=== PATIENT | male | born 1950 | race Caucasian/White ===

== ENCOUNTER 2021-10-29 18:20 | Inpatient (IN) ==
[2021-10-29] MEDS ORDERED: NS 1,000 ML IV 1,000 ML IV ONE (18:31)
[2021-10-29] MEDS ORDERED: NS 1,000 ML IV 1,000 ML ONE (18:35)
[2021-10-29 18:39] LABS: BASOPHILS % (AUTO) 0.1 % (0.2-1.0); EOSINOPHILS # (AUTO) 1.6 x10^3/uL (0.0-0.2); EOSINOPHILS % (AUTO) 6.4 % (0.9-2.9); HEMOGLOBIN 13.6 g/dL (13.5-18.0); LYMPHOCYTES # (AUTO) 0.7 X10^3/uL (1.3-2.9); LYMPHOCYTES % (AUTO) 2.9 % (21.0-51.0); MEAN CORPUSCULAR HEMOGLOBIN 34.7 pg (27.0-34.0); MEAN CORPUSCULAR HGB CONC 34.9 g/dL (33.0-35.0); MEAN CORPUSCULAR VOLUME 99.3 fL (80.0-100.0); MEAN PLATELET VOLUME 6.7 fL (7.4-11.0); MONOCYTES # (AUTO) 0.9 x10^3/uL (0.3-0.8); MONOCYTES % (AUTO) 3.8 % (0.0-13.0); NEUTROPHILS % (AUTO) 86.8 % (42.0-75.0); PLATELET COUNT 408 X10^3/uL (150.0-450.0); RED BLOOD COUNT 3.93 X10^6/uL (4.7-6.0); RED CELL DISTRIBUTION WIDTH 12.9 % (11.6-16.5); WHITE BLOOD COUNT 24.2 X10^3/uL (3.6-10.0)
[2021-10-29 18:52] LABS: ALANINE AMINOTRANSFERASE 60 Units/L (12-78); ALBUMIN 2.9 g/dL (3.4-5.0); ALKALINE PHOSPHATASE 82 Units/L (46-116); ASPARTATE AMINO TRANSFERASE 79 Units/L (15-37); BLOOD UREA NITROGEN 26 mg/dL (7-18); CALCIUM 9.3 mg/dL (8.5-10.1); CARBON DIOXIDE 26.6 mmol/L (21-32); COR CA(FOR HYPOALB) 10.2 mg/dL (8.5-10.1); CREATININE 1.19 mg/dL (0.70-1.30); TOTAL PROTEIN 6.9 g/dL (6.4-8.2); eGFR NON BLACK RACES > 60 (>60)
[2021-10-29 18:55] LABS: CHLORIDE 77 mmol/L (98-107); SODIUM 114 mmol/L (136-145)
[2021-10-29 18:56] LABS: PLATELET MORPHOLOGY COMMENT NORMAL (NORMAL)
[2021-10-29] MEDS ORDERED: SODIUM CHL HYPERTONIC ** 3% ** 500 ML IV SCH (19:10)
--- NOTE | 2021-10-29 19:27 | DR.GENAD ---
HPI Time Seen Time Seen by Provider: 10/29/21 18:44 PCP Primary Care Physician: SARAH HPI Comment HPI Comment: A 71 y/o male brought by the daughter for evaluation of weakness, confusion, falls x 2 ( in past 1 week), loss of appetite Complaint/Symptoms Chief Complaint:: PT. WAS BROUGHT INTO THE ER PER FAMILY MEMBER WITH C/O INCREASED WEAKNESS, DEHYDRATION, LOSS OF APPETITE AND AMS. FAMILY MEMBER STATES PT. HAS BEEN SICK FOR A WHILE BUT HAS GOTTEN WORSE. PT. HAS HAD FREQUENT FALLS AT HOME. MULTIPLE SKIN TEARS NOTED. PT. IS EMACIATED. COVID-19 Coronavirus risk:travel/contact w/high risk person: No Has patient experienced Coronavirus symptoms: No Nurses notes reviewed Nurses Notes Review: Yes Source History Provided: Patient and Family Member Mode of Arrival Mode of Arrival: Wheelchair Timing Onset of Chief Complaint: 10/29/21 Came on: Gradually Duration Duration: Weeks PMH PMH Past Medical History: Yes Past Medical History: Arthritis, COPD and Hypertension Past Medical History Comment: SCOLOSIS Past Surgical History: Yes Surgical History: Tonsillectomy and Other Past Surgical History Comment: BACK SURGERY Family History History of Family Medical Conditions: Yes Family Medical History: Diabetes Mellitus, Cancer, [place] and Coronary Artery Disease Social History Does patient currently use any type of tobacco product: Yes Have you used tobacco products in the last 12 months: Yes Type of Tobacco Use: Cigarettes Does any household member use tobacco: Yes Alcohol Use: DAILY Do you use any recreational Drugs:: No Lives With: Alone Lives Where: Home Travel Risk Coronavirus risk:travel/contact w/high risk person: No Has patient experienced Coronavirus symptoms: No Infectious screening In the last 2 months have you had wt loss of >10#?: YES Have you had fever, night sweats or hemotysis?: No Have you traveled outside the country in the last 6 months?: No Isolation: Standard ROS Review of Systems Constitutional: Malaise and Loss of Appetite Eyes: No Symptoms Reported ENTM: No Symptoms Reported Respiratoy: No Symptoms Reported Cardiovascular: No Symptoms Reported Gastrointestinal/Abdominal: Other (anorexia) Genitourinary: No Symptoms Reported Neurological: Weakness and Other (confusion) Musculoskeletal: Other (recent fallls) Integumentary: No Symptoms Reported Hematologic/Lymphatic: No Symptoms Reported Endocrine: No Symptoms Reported Psychiatric: No Symptoms Reported PE Vital Signs Vitals: Temperature 98.0 F Pulse Rate 89 Respiratory Rate 16 Blood Pressure 136/74 O2 Sat by Pulse Oximetry 94 General Limitations: Physical Limitation General Appearance: Alert, In No Apparent Distress and Cachectic Head Head Exam: Normal Inspection, Atraumatic and Normocephalic Eyes Eye exam: Normal Appearance and EOMI ENT ENT Exam: Normal Exam, Normal Oropharynx, Normal External Ear Exam and Mucous Membranes Moist Neck Neck Exam: Normal Inspection, Full ROM and Trachea Midline Chest Chest Inspection: Normal Inspection and Symmetric Chest Wall Rise Respiratory Respiratory Exam: Normal Lung Sounds Bilat Cardiovascular Cardiovascular Exam: Regular Rate, Normal Rhythm, Normal Heart Sounds, +S1 and +S2 Abdominal Exam Abdominal Exam: Normal Inspection, Normal Bowel Sounds and Soft Extremities Extremities Exam: Normal Inspection and Full ROM Back Back Exam: Normal Inspection and Full ROM Neurologic Neurological Exam: Alert and Other (oriented to self and family) Psychiatric Psychiatric Exam: Normal Affect and Normal Mood Skin Skin Exam: Intact and Other (ecchymoses upper exts. ) COURSE Treatment Treatment: Name: Kerry CHAPA#: [id number]: [id number] : 1950Sex: MLocation: ER Order Number(s): [id number](s):CHEST, 1 VIEW Ordering Physician: PHYLLIS RICE Primary Care: GABE SMITH Service Date: 10/29/21 Service Time: 1844 HISTORY PT C/O SOB, DISORIENTED, DEHYDRATED, WEAKNESS AND LOSS OF APPETITE STUDY CHEST, 1 VIEW COMPARISON September 18, 2020 TECHNIQUE Chest radiographic imaging, AP portable projection, 1 image FINDINGS No cardiomegaly. Lungs are hyperinflated. Gas at the lower aspect of the right thorax could represent pneumoperitoneum. No pleural effusion. No pneumothorax. No acute osseous abnormality. IMPRESSION 1. No imaging findings of acute cardiopulmonary disease. 2. Gas at the lower aspect of the right thorax could represent pneumoperitoneum. Recommend bilateral decubitus imaging of the abdomen for further characterization. Electronically signed by: Malcolm Horton (Oct 29, 2021 20:35:40) Report Electronically signed: 10/29/[id number] CC: Phyllis Rice Consultation Consultation Comments: Name: Kerry CHAPA#: [id number]: [id number] : 1950Sex: MLocation: ER Order Number(s): [id number](s):CHEST,LATERAL DECUBITUS Ordering Physician: PHYLLIS RICE Primary Care: JACKIE SMITHEN Service Date: 10/29/21 Service Time: 2044 HISTORY R/O PNEUMO-MEDIASTINUM STUDY CHEST,LATERAL DECUBITUS COMPARISON None available TECHNIQUE Chest radiographic imaging, left lateral decubitus, 1 image FINDINGS No cardiomegaly. No focal airspace disease. No pleural effusion. No pneumothorax. No acute osseous abnormality. Gas is visualized under the right diaphragm. Fluid level at the dependent portion of the gaseous collection. IMPRESSION 1. No imaging findings of acute cardiopulmonary disease. 2. Gas is visualized under the right diaphragm which is concerning for pneumoperitoneum. There is an air-fluid level in the inferior aspect of the collection which could represent a distended bowel loop. Recommend a CT abdomen/pelvis study for further characterization. Electronically signed by: Malcolm Horton (Oct 29, 2021 21:22:50) Report Electronically signed: 10/29/[id number] CC: Phyllis Rice [facility] Labs Reviewed Result Diagrams: 10/29/21 18:25 10/29/21 18:25 Laboratory: WBC 24.2 X10^3/uL (3.6-10.0) H 10/29/21 18:25 RBC 3.93 X10^6/uL (4.7-6.0) L 10/29/21 18:25 Hgb 13.6 g/dL (13.5-18.0) 10/29/21 18:25 Hct 39.0 % (42.0-54.0) L 10/29/21 18:25 MCV 99.3 fL (80.0-100.0) 10/29/21 18:25 MCH 34.7 pg (27.0-34.0) H 10/29/21 18:25 MCHC 34.9 g/dL (33.0-35.0) 10/29/21 18:25 RDW 12.9 % (11.6-16.5) 10/29/21 18:25 Plt Count 408 X10^3/uL (150.0-450.0) 10/29/21 18:25 Plt Count Comment Adequate (ADEQUATE) 10/29/21 18:25 MPV 6.7 fL (7.4-11.0) L 10/29/21 18:25 Neut % (Auto) 86.8 % (42.0-75.0) H 10/29/21 18:25 Lymph % (Auto) 2.9 % (21.0-51.0) L 10/29/21 18:25 [place] % (Auto) 3.8 % (0.0-13.0) 10/29/21 18:25 Eos % (Auto) 6.4 % (0.9-2.9) H 10/29/21 18:25 Baso % (Auto) 0.1 % (0.2-1.0) L 10/29/21 18: Neut # (Auto) 21.0 x10^3/uL (2.2-4.8) H 10/29/21 18:25 Lymph # (Auto) 0.7 X10^3/uL (1.3-2.9) L 10/29/21 18:25 [place] # (Auto) 0.9 x10^3/uL (0.3-0.8) H 10/29/21 18:25 Eos # (Auto) 1.6 x10^3/uL (0.0-0.2) H 10/29/21 18:25 Baso # (Auto) 0.0 X10^3/uL (0.0-0.1) 10/29/21 18:25 Absolute Nucleated RBC 0.0 /100WBC 10/29/21 18: Total Counted 100 10/29/21 18: Neutrophils % (Manual) 89 % (39-76) H 10/29/21 18:25 Lymphocytes % (Manual) 5 % (13-43) L 10/29/21 18:25 Monocytes % (Manual) 4 % (4-9) 10/29/21 18:25 Eosinophils % (Manual) 2 % (0-6) 10/29/21 18: Plt Morphology Comment Normal (NORMAL) 10/29/21 18: RBC Morphology Normal (NORMAL) 10/29/21 18:25 Sample Site Rrad 10/29/21 19:28 ABG pH 7.400 (7.35-7.45) 10/29/21 19:28 ABG pCO2 43.0 mmHg (35.0-45.0) 10/29/21 19:28 ABG pO2 45.0 mmHg (80.0-100.0) L* 10/29/21 19:28 ABG HCO3 26.6 mmol/L (22-26) H 10/29/21 19:28 ABG O2 Saturation 81.0 % (90-100) L* 10/29/21:28 ABG Base Excess 1.5 mmol/L (-2.0-2.0) 10/29/21 19:28 Ben Test Pos 10/29/21 19:28 A-a Gradient 51.0 mmHg 10/29/21 19:28 FiO2 21.0 10/29/21 19:28 Blood Gas Comments Amanda well ms/mtf 10/29/21 19:28 Sodium 114 mmol/L (136-145) L* 10/29/21 18:25 Corrected Sodium TNP 10/29/21 18:25 Potassium 3.9 mmol/L (3.5-5.1) 10/29/21 18:25 Chloride 77 mmol/L (98-107) L* 10/29/21 18:25 Carbon Dioxide 26.6 mmol/L (21-32) 10/29/21 18:25 BUN 26 mg/dL (7-18) H 10/29/21 18:25 Creatinine 1.19 mg/dL (0.70-1.30) 10/29/21 18:25 Est GFR (MDRD) Af Amer > 60 (>60) 10/29/21 18:25 Est GFR (MDRD) Non-Af > 60 (>60) 10/29/21 18:25 Glucose 104 mg/dL (65-99) H 10/29/21 18:25 Lactic Acid 2.5 mmol/L (0.4-2.0) H 10/29/21 19:55 Calcium 9.3 mg/dL (8.5-10.1) 10/29/21 18:25 Corrected Calcium 10.2 mg/dL (8.5-10.1) H 10/29/21 18:25 Total Bilirubin 0.80 mg/dL (0.2-1.0) 10/29/21 18:25 AST 79 Units/L (15-37) H 10/29/21 18:25 ALT 60 Units/L (12-78) 10/29/21 18:25 Alkaline Phosphatase 82 Units/L (46-116) 10/29/21 18:25 Total Protein 6.9 g/dL (6.4-8.2) 10/29/21 18:25 Albumin 2.9 g/dL (3.4-5.0) L 10/29/21 18:25 Globulin 4.0 g/dL (2.5-4.5) 10/29/21 18:25 Albumin/Globulin Ratio 0.7 Ratio (1.1-2.1) L 10/29/21 18:25 Specimen Type Catherized urine 10/29/21: Urine Color Yellow (YELLOW) 10/29/21 Urine Appearance Clear (CLEAR) 10/29/21: Urine pH 6.0 (5.0 - 8.0) 10/29/21: Ur Specific [place] 1.015 (1.000-1.030) 10/29/21 Urine Protein 2+ (NEGATIVE) 10/29/21 Urine Glucose (UA) Negative (NEGATIVE) 10/29/21 Urine Ketones 3+ (NEGATIVE) 10/29/21 Urine Occult Blood 4+ (NEGATIVE) 10/29/21 Urine Nitrite Negative (NEGATIVE) 10/29/21 Urine Bilirubin Negative (NEGATIVE) 10/29/21 Urine Urobilinogen Normal (NORMAL) 10/29/21 Ur Leukocyte Esterase Negative (NEGATIVE) 10/29/21 Urine RBC 0-2 /HPF (0-3) 10/29/21: Urine WBC None seen /HPF (0-5) 10/29/21: Ur Squamous Epith Cells Few /HPF (NEGATIVE) 10/29/21 Amorphous Sediment 2+ /HPF (NEGATIVE) 10/29/21 Urine Bacteria Trace /HPF (NEGATIVE) 10/29/21 Hyaline Casts Moderate /LPF (NEGATIVE) 10/29/21: Urine Mucus Few /HPF (NEGATIVE) 10/29/21 Ur Culture Indicated? No/not indicated 10/29/21 SARS CoV-2 RNA Rapid YVON Negative (NEGATIVE) 10/29/21 20:19 Opioid Opioid Risk Tool Age (Paulie box if 16-45): No History of Preadolescent Sexual Abuse: No Total: 0 Total Score Risk Category: Low Risk Copyright: Je LEWIS predicting aberrant behaviors Diagnosis Discharge Problem: Hyponatremia, Neutrophilic leukocytosis, Acute dehydration, COPD with chronic bronchitis ADDITIONAL NOTES Additional Notes Additional Notes: Name: Kerry CHAPA#: [id number]: [id number] : 1950Sex: MLocation: ER Order Number(s): [id number](s):ABDOMEN/PELVIS W/O CON Ordering Physician: PHYLLIS RICE Primary Care: GABE SMITH Service Date: 10/29/21 Service Time: 2150 HISTORY R/O PNEUMOPRITONEUM STUDY ABDOMEN/PELVIS W/O CON COMPARISON Chest radiographs, October 29, [address] Non-contrasted axial CT images of the abdomen and pelvis were obtained and reformatted into coronal and sagittal planes for further evaluation. Limited by patient motion. Radiation dose: 426.70 mGy-cm total DLP FINDINGS Airspace disease in the left upper lobe. Stomach appears normal. Solid visceral organs of the upper abdomen are unremarkable. Gallbladder appears normal. Unremarkable appearance of the kidneys. Unremarkable appearance of the urinary bladder. Normal appearance of the small and large bowel. Reproductive structures are unremarkable. Appendix is not identified. No pneumoperitoneum. Colonic interposition between the liver and the right diaphragm. No significant fluid collection. No adenopathy. No acute osseous abnormality. Multilevel age-indeterminate vertebral body height loss. IMPRESSION 1. No acute intra-abdominal abnormality detected. No pneumoperitoneum. Gas under the right diaphragm correlates with mildly dilated gas-filled colon; colonic interposition. 2. Airspace disease in the left upper lobe. Finding could represent the sequela of an atypical/viral infectious process. Recommend correlation with COVID-19 testing. Electronically signed by: Malcolm Horton (Oct 29, 2021 22:30:10) Report Electronically signed: 10/29/216 CC: Phyllis Rice
[2021-10-29 19:31] LABS: ABG BASE EXCESS 1.5 mmol/L (-2.0-2.0); ABG HCO3 26.6 mmol/L (22-26)
[2021-10-29 19:32] LABS: ABG ALLEN TEST POS
--- NOTE | 2021-10-29 20:36 | RAD ---
HISTORYPT C/O SOB, DISORIENTED, DEHYDRATED, WEAKNESS AND LOSS OF APPETITESTUDYCHEST, [facility], AP portable projection, 1 imageFINDINGSNo cardiomegaly.Lungs are hyperinflated.Gas at the lower aspect of the right thorax could represent pneumoperitoneum.No pleural effusion.No pneumothorax.No acute osseous abnormality.IMPRESSION1. No imaging findings of acute cardiopulmonary disease.2. Gas at the lower aspect of the right thorax could represent pneumoperitoneum. Recommend bilateral decubitus imaging of the abdomen for further characterization.Electronically signed by: Malcolm Horton (Oct 29, 2021 20:35:40)
--- NOTE | 2021-10-29 21:24 | RAD ---
HISTORYR/O PNEUMO-MEDIASTINUMSTUDYCHEST,LATERAL DECUBITUSCOMPARISONNone availableTECHNIQUEChest radiographic imaging, left lateral decubitus, 1 imageFINDINGSNo cardiomegaly.No focal airspace disease.No pleural effusion.No pneumothorax.No acute osseous abnormality.Gas is visualized under the right diaphragm.Fluid level at the dependent portion of the gaseous collection.IMPRESSION1. No imaging findings of acute cardiopulmonary disease.2. Gas is visualized under the right diaphragm which is concerning for pneumoperitoneum. There is an air-fluid level in the inferior aspect of the collection which could represent a distended bowel loop. Recommend a CT abdomen/pelvis study for further characterization.Electronically signed by: Malcolm Horton (Oct 29, 2021 21:22:50)
--- NOTE | 2021-10-29 22:31 | CT ---
HISTORYR/O PNEUMOPRITONEUMSTUDYABDOMEN/PELVIS W/O CONCOMPARISONChest radiographs, October 29, 2021TECHNIQUENon-contrasted axial CT images of the abdomen and pelvis were obtained and reformatted into coronal and sagittal planes for further evaluation. Limited by patient motion.Radiation dose: 426.70 mGy-cm total DLPFINDINGSAirspace disease in the left upper lobe.Stomach appears normal.Solid visceral organs of the upper abdomen are unremarkable.Gallbladder appears normal.Unremarkable appearance of the kidneys.Unremarkable appearance of the urinary bladder.Normal appearance of the small and large bowel.Reproductive structures are unremarkable.Appendix is not identified.No pneumoperitoneum.Colonic interposition between the liver and the right diaphragm.No significant fluid collection.No adenopathy.No acute osseous abnormality.Multilevel age-indeterminate vertebral body height loss.IMPRESSION1. No acute intra-abdominal abnormality detected. No pneumoperitoneum. Gas under the right diaphragm correlates with mildly dilated gas-filled colon; colonic interposition.2. Airspace disease in the left upper lobe. Finding could represent the sequela of an atypical/viral infectious process. Recommend correlation with COVID-19 testing.Electronically signed by: Malcolm Horton (Oct 29, 2021 22:30:10)
[2021-10-29 22:43] LABS: BILIRUBIN,URINE NEGATIVE (NEGATIVE); BLOOD/HEMOGLOBIN,URINE 4+ (NEGATIVE); GLUCOSE, URINE NEGATIVE (NEGATIVE); KETONES,URINE 3+ (NEGATIVE); LEUKOCYTE ESTERASE ,URINE NEGATIVE (NEGATIVE); NITRITES,URINE NEGATIVE (NEGATIVE); PROTEIN,URINE 2+ (NEGATIVE); UROBILINOGEN,URINE NORMAL (NORMAL)
[2021-10-29 22:54] LABS: APPEARANCE,URINE CLEAR (CLEAR); COLOR,URINE YELLOW (YELLOW)
[2021-10-29 22:56] LABS: BACTERIA,URINE TRACE /HPF (NEGATIVE); HYALINE CASTS, URINE MODERATE /LPF (NEGATIVE); RBC,URINE 0-2 /HPF (0-3); SQUAMOUS EPITHELIAL CELL,UR FEW /HPF (NEGATIVE)
[2021-10-30] MEDS ORDERED: XANAX PO PRN (01:24)
[2021-10-30 05:09] LABS: BASOPHILS % (AUTO) 0.1 % (0.2-1.0); HEMATOCRIT 35.5 % (42.0-54.0); HEMOGLOBIN 12.4 g/dL (13.5-18.0); LYMPHOCYTES # (AUTO) 0.5 X10^3/uL (1.3-2.9); MEAN CORPUSCULAR HEMOGLOBIN 34.9 pg (27.0-34.0); MEAN CORPUSCULAR VOLUME 99.7 fL (80.0-100.0); MEAN PLATELET VOLUME 6.8 fL (7.4-11.0); MONOCYTES # (AUTO) 1.6 x10^3/uL (0.3-0.8); MONOCYTES % (AUTO) 6.6 % (0.0-13.0); NEUTROPHILS # (AUTO) 21.8 x10^3/uL (2.2-4.8); NEUTROPHILS % (AUTO) 91.3 % (42.0-75.0); PLATELET COUNT 373 X10^3/uL (150.0-450.0); RED BLOOD COUNT 3.56 X10^6/uL (4.7-6.0); RED CELL DISTRIBUTION WIDTH 12.8 % (11.6-16.5); WHITE BLOOD COUNT 23.9 X10^3/uL (3.6-10.0)
[2021-10-30 05:26] LABS: ALANINE AMINOTRANSFERASE 54 Units/L (12-78); ALBUMIN 2.3 g/dL (3.4-5.0); ALKALINE PHOSPHATASE 64 Units/L (46-116); ASPARTATE AMINO TRANSFERASE 55 Units/L (15-37); BLOOD UREA NITROGEN 20 mg/dL (7-18); CALCIUM 8.4 mg/dL (8.5-10.1); CARBON DIOXIDE 24.8 mmol/L (21-32); CHLORIDE 91 mmol/L (98-107); COR CA(FOR HYPOALB) 9.8 mg/dL (8.5-10.1); CREATININE 0.53 mg/dL (0.70-1.30); SODIUM 130 mmol/L (136-145); TOTAL PROTEIN 5.7 g/dL (6.4-8.2); eGFR NON BLACK RACES > 60 (>60)
[2021-10-30] MEDS ORDERED: KLOR-CON PO PRN (05:39)
[2021-10-30] MEDS ORDERED: POTASSIUM CHL 60 MEQ/NS 0.45% 500 ML IV PRN (05:39)
[2021-10-30] MEDS ORDERED: POTASSIUM CHLORIDE LIQ 20 MEQ UDC PO PRN (05:39)
[2021-10-30] MEDS ORDERED: POTASSIUM CHL 40 MEQ/NS 0.45% 500 ML IV PRN (05:39)
[2021-10-30] MEDS ORDERED: K-DUR TAB 20 MEQ PO PRN (05:39)
[2021-10-30] MEDS ORDERED: MICRO K EXTEN CAP 10 MEQ PO PRN (05:39)
[2021-10-30] MEDS ORDERED: NovoLIN R (or HumuLIN R) SUBCUT PRN (05:49)
[2021-10-30 05:57] LABS: PLATELET MORPHOLOGY COMMENT NORMAL (NORMAL)
[2021-10-30] MEDS ORDERED: D5W 1,000 ML IV 1,000 ML IV SCH (06:00)
[2021-10-30] MEDS: MAGNESIUM SULFATE 1 GRAM/100 mL PREMIX 1 G/100 ML BAG IV PRN ×3 (07:52→10:24)
[2021-10-30] MEDS: K-RIDER 10 MEQ/NS 100 ML 10 MEQ/100 ML BAG IV PRN ×3 (07:52→10:24)
[2021-10-30] MEDS: PriLOSEC PO SCH (08:19)
[2021-10-30] MEDS: CELEXA PO SCH (08:19)
[2021-10-30] MEDS: LOVENOX INJ 30 MG SYR SC SCH (08:19)
[2021-10-30] MEDS ORDERED: PATIENT'S HOME MEDICATION (Lovastatin 40 mg tablet) PO SCH ×2 (09:00)
[2021-10-30] MEDS: ZOSYN VIAL 3.375 GRAMS 3.375 G in NS 100 ML IV + SPIKE MINIBAG* 100 ML IV SCH ×3 (11:09→21:26)
[2021-10-30 13:44] LABS: BLOOD UREA NITROGEN 12 mg/dL (7-18); CALCIUM 8.1 mg/dL (8.5-10.1); CARBON DIOXIDE 28.8 mmol/L (21-32); CHLORIDE 87 mmol/L (98-107); COR NA(FOR HYPERGLY) 124 mmol/L (136-145); CREATININE 0.42 mg/dL (0.70-1.30); eGFR NON BLACK RACES > 60 (>60)
[2021-10-30 13:48] LABS: SODIUM 124 mmol/L (136-145)
[2021-10-30] MEDS: D5 NS 1,000 ML IV 1,000 ML IV SCH (14:20)
[2021-10-30 18:23] LABS: BLOOD UREA NITROGEN 11 mg/dL (7-18); CALCIUM 8.5 mg/dL (8.5-10.1); CARBON DIOXIDE 30.2 mmol/L (21-32); CHLORIDE 88 mmol/L (98-107); COR NA(FOR HYPERGLY) 127 mmol/L (136-145); CREATININE 0.48 mg/dL (0.70-1.30); SODIUM 126 mmol/L (136-145); eGFR NON BLACK RACES > 60 (>60)
[2021-10-30] MEDS: NORCO 5/325 MG TAB PO PRN (19:25)
[2021-10-30] MEDS: SNACK - Diabetic Appropriate PO SCH (21:23)
[2021-10-31 04:45] LABS: BASOPHILS % (AUTO) 0.1 % (0.2-1.0); HEMATOCRIT 36.3 % (42.0-54.0); HEMOGLOBIN 12.4 g/dL (13.5-18.0); LYMPHOCYTES # (AUTO) 0.6 X10^3/uL (1.3-2.9); MEAN CORPUSCULAR HEMOGLOBIN 34.1 pg (27.0-34.0); MEAN CORPUSCULAR HGB CONC 34.2 g/dL (33.0-35.0); MEAN CORPUSCULAR VOLUME 99.8 fL (80.0-100.0); MEAN PLATELET VOLUME 6.3 fL (7.4-11.0); MONOCYTES # (AUTO) 1.2 x10^3/uL (0.3-0.8); MONOCYTES % (AUTO) 6.3 % (0.0-13.0); NEUTROPHILS # (AUTO) 17.2 x10^3/uL (2.2-4.8); NEUTROPHILS % (AUTO) 90.6 % (42.0-75.0); PLATELET COUNT 340 X10^3/uL (150.0-450.0); RED BLOOD COUNT 3.64 X10^6/uL (4.7-6.0); RED CELL DISTRIBUTION WIDTH 13.1 % (11.6-16.5)
[2021-10-31 04:58] LABS: ALANINE AMINOTRANSFERASE 43 Units/L (12-78); ALKALINE PHOSPHATASE 60 Units/L (46-116); ASPARTATE AMINO TRANSFERASE 28 Units/L (15-37); BLOOD UREA NITROGEN 10 mg/dL (7-18); CALCIUM 8.4 mg/dL (8.5-10.1); CARBON DIOXIDE 29.6 mmol/L (21-32); CHLORIDE 90 mmol/L (98-107); CREATININE 0.35 mg/dL (0.70-1.30); MAGNESIUM 1.6 mg/dL (1.7-2.9); SODIUM 128 mmol/L (136-145); TOTAL PROTEIN 5.6 g/dL (6.4-8.2); eGFR NON BLACK RACES > 60 (>60)
[2021-10-31 05:21] LABS: PLATELET MORPHOLOGY COMMENT NORMAL (NORMAL)
[2021-10-31] MEDS: ZOSYN VIAL 3.375 GRAMS 3.375 G in NS 100 ML IV + SPIKE MINIBAG* 100 ML IV SCH (05:52)
--- NOTE | 2021-10-31 08:01 | DR.H&P ---
H&P History & Physical for Day of: H&P Date: 10/30/21 Chief Complaint Chief Complaint: Weakness, Altered mental status Allergies Allergies Allergy/AdvReac Type Severity Reaction Status Date / Time clindamycin Allergy Verified 09/18/20 15:36 ketorolac [From Toradol] Allergy Verified 09/18/20 15:36 History of Present Illness History of Present Illness: Pt is a 71 year old male past medical history of COPD, Hypertension, OA, presenting after family member noted increased weakness, loss of appetite, and altered mental status. Pt is emaciated. On exam patient is lethargic and appears to be dehydrated. Labs/imaging: Wbc 24>23, Hgb 13.6>12.4, Plt 408, D-dimer 0.60, Na 114>130, K 3.9>3.1, Creatinine 1.19>0.53, Glucose 80, ABG: pH 7.4, CO2 43, O2 45, HCO3 26, O2 sat 81% on RA, LA 2.5>1.2, Flu/RSV/COVID-19 negative. Chest XR: 1. No imaging findings of acute cardiopulmonary disease. 2. Gas at the lower aspect of the right thorax could represent pneumoperitoneum. Recommend bilateral decubitus imaging of the abdomen for further characterization. CTAP was then obtained that revealed: 1. No acute intra-abdominal abnormality detected. No pneumoperitoneum. Gas under the right diaphragm correlates with mildly dilated gas-filled colon; colonic interpositio n. 2. Airspace disease in the left upper lobe. Finding could represent the sequela of an atypical/viral infectious process. Recommend correlation with COVID-19 testing. Pt was found to be severely hyponatremic. He was started on 3% Hypertonic saline. Repeat BMP showed Na 130. Will change to D5 NS to allow for correction of Na between 8 to 10 per 24 hours. Repeat BMP at 12. Leukocytosis with elevated LA. Will get Blood cultures, Sputum, and Urine cultures. Start on antibiotics Zosyn. Scheduled bronchodilators, Supplemental oxygen, wean as tolerated. Restart home medications, order physical therapy. Continue to closely monitor and follow up labs/imaging. Time spent on clinical assessment, reviewing labs and imaging, decision making, and documentation greater than 45 minutes. Past Medical History Past Medical History: Arthritis, COPD and Hypertension Past Surgical History Surgical History: Tonsillectomy and Other Family History Family Medical History: Diabetes Mellitus, Cancer, [place] and Coronary Artery Disease Social History Does patient currently use any type of tobacco product: Yes Have you used tobacco products in the last 12 months: Yes Type of Tobacco Use: Cigarettes Does any household member use tobacco: Yes Alcohol Use: DAILY Medications Home Medications: clindamycin Allergy (Verified 09/18/20 15:36) ketorolac [From Toradol] Allergy (Verified 09/18/20 15:36) CONTINUE taking the following medications alprazolam 1 mg PO TID PRN 10/29/21 [History] amlodipine 10 mg PO DAILY 10/29/21 [History] citalopram 20 mg PO DAILY 10/29/21 [History] clonidine HCl 0.3 mg PO BID 10/29/21 [History] hydrocodone-acetaminophen 1 tab PO Q6H PRN 10/29/21 [History] lisinopril-hydrochlorothiazide 1 tab PO DAILY 10/29/21 [History] lovastatin 40 mg PO DAILY 10/29/21 [History] omeprazole 20 mg PO DAILY 10/29/21 [History] Labs Result Diagrams: 10/31/21 04:30 10/31/21 04:30 Labs: Laboratory WBC 19.0 X10^3/uL (3.6-10.0) H 10/31/21 04:30 RBC 3.64 X10^6/uL (4.7-6.0) L 10/31/21 04:30 Hgb 12.4 g/dL (13.5-18.0) L 10/31/21 04:30 Hct 36.3 % (42.0-54.0) L 10/31/21 04:30 MCV 99.8 fL (80.0-100.0) 10/31/21 04:30 MCH 34.1 pg (27.0-34.0) H 10/31/21 04:30 MCHC 34.2 g/dL (33.0-35.0) 10/31/21 04:30 RDW 13.1 % (11.6-16.5) 10/31/21 04:30 Plt Count 340 X10^3/uL (150.0-450.0) 10/31/21 04:30 Plt Count Comment Adequate (ADEQUATE) 10/31/21 04:30 MPV 6.3 fL (7.4-11.0) L 10/31/21 04:30 Neut % (Auto) 90.6 % (42.0-75.0) H 10/31/21 04:30 Lymph % (Auto) 3.0 % (21.0-51.0) L 10/31/21 04:30 [place] % (Auto) 6.3 % (0.0-13.0) 10/31/21 04:30 Eos % (Auto) 0.0 % (0.9-2.9) L 10/31/21 04:30 Baso % (Auto) 0.1 % (0.2-1.0) L 10/31/21 04:30 Neut # (Auto) 17.2 x10^3/uL (2.2-4.8) H 10/31/21 04:30 Lymph # (Auto) 0.6 X10^3/uL (1.3-2.9) L 10/31/21 04:30 [place] # (Auto) 1.2 x10^3/uL (0.3-0.8) H 10/31/21 04:30 Eos # (Auto) 0.0 x10^3/uL (0.0-0.2) 10/31/21 04:30 Baso # (Auto) 0.0 X10^3/uL (0.0-0.1) 10/31/21 04:30 Absolute Nucleated RBC 0.0 /100WBC 10/31/21 04:30 Total Counted 100 10/31/21 04:30 Neutrophils % (Manual) 89 % (39-76) H 10/31/21 04:30 Lymphocytes % (Manual) 9 % (13-43) L 10/31/21 04:30 Monocytes % (Manual) 2 % (4-9) L 10/31/21 04:30 Eosinophils % (Manual) 2 % (0-6) 10/29/21 18:25 Plt Morphology Comment Normal (NORMAL) 10/31/21 04:30 RBC Morphology Normal (NORMAL) 10/31/21 04:30 D-Dimer 0.60 ug/ml (0.0-0.57) H* 10/29/21 23:05 Sample Site Rrad 10/29/21 19:28 ABG pH 7.400 (7.35-7.45) 10/29/21 19:28 ABG pCO2 43.0 mmHg (35.0-45.0) 10/29/21 19:28 ABG pO2 45.0 mmHg (80.0-100.0) L* 10/29/21 19:28 ABG HCO3 26.6 mmol/L (22-26) H 10/29/21 19:28 ABG O2 Saturation 81.0 % (90-100) L* 10/29/21: ABG Base Excess 1.5 mmol/L (-2.0-2.0) 10/29/21 19:28 Ben Test Pos 10/29/21: A-a Gradient 51.0 mmHg 10/29/21 19: FiO2 21.0 10/29/21 19:28 Blood Gas Comments Amanda well ms/mtf 10/29/21 19:28 Sodium 128 mmol/L (136-145) L 10/31/21 04:30 Corrected Sodium TNP 10/31/21 04:30 Potassium 3.2 mmol/L (3.5-5.1) L 10/31/21 04:30 Chloride 90 mmol/L (98-107) L 10/31/21 04:30 Carbon Dioxide 29.6 mmol/L (21-32) 10/31/21 04:30 BUN 10 mg/dL (7-18) 10/31/21 04:30 Creatinine 0.35 mg/dL (0.70-1.30) L 10/31/21 04:30 Est GFR (MDRD) Af Amer > 60 (>60) 10/31/21 04:30 Est GFR (MDRD) Non-Af > 60 (>60) 10/31/21 04:30 Glucose 103 mg/dL (65-99) H 10/31/21 04:30 POC Glucose (mg/dL) 130 mg/dL (65-99) H 10/30/21 11:53 Lactic Acid 1.2 mmol/L (0.4-2.0) 10/30/21 07:20 Calcium 8.4 mg/dL (8.5-10.1) L 10/31/21 04:30 Corrected Calcium 10.0 mg/dL (8.5-10.1) 10/31/21 04:30 Magnesium 1.6 mg/dL (1.7-2.9) L 10/31/21 04:30 Total Bilirubin 0.50 mg/dL (0.2-1.0) 10/31/21 04:30 AST 28 Units/L (15-37) 10/31/21 04:30 ALT 43 Units/L (12-78) 10/31/21 04:30 Alkaline Phosphatase 60 Units/L (46-116) 10/31/21 04:30 Total Protein 5.6 g/dL (6.4-8.2) L 10/31/21 04:30 Albumin 2.0 g/dL (3.4-5.0) L 10/31/21 04:30 Globulin 3.6 g/dL (2.5-4.5) 10/31/21 04:30 Albumin/Globulin Ratio 0.6 Ratio (1.1-2.1) L 10/31/21 04:30 Specimen Type Catherized urine 10/29/21: Urine Color Yellow (YELLOW) 10/29/21: Urine Appearance Clear (CLEAR) 10/29/21: Urine pH 6.0 (5.0 - 8.0) 10/29/21: Ur Specific [place] 1.015 (1.000-1.030) 10/29/21: Urine Protein 2+ (NEGATIVE) 10/29/21: Urine Glucose (UA) Negative (NEGATIVE) 10/29/21: Urine Ketones 3+ (NEGATIVE) 10/29/21: Urine Occult Blood 4+ (NEGATIVE) 10/29/21 Urine Nitrite Negative (NEGATIVE) 10/29/21: Urine Bilirubin Negative (NEGATIVE) 10/29/21: Urine Urobilinogen Normal (NORMAL) 10/29/21 Ur Leukocyte Esterase Negative (NEGATIVE) 10/29/21 Urine RBC 0-2 /HPF (0-3) 10/29/21 22: Urine WBC None seen /HPF (0-5) 10/29/21: Ur Squamous Epith Cells Few /HPF (NEGATIVE) 10/29/21: Amorphous Sediment 2+ /HPF (NEGATIVE) 10/29/21 Urine Bacteria Trace /HPF (NEGATIVE) 10/29/21 22:27 Hyaline Casts Moderate /LPF (NEGATIVE) 10/29/21 22:27 Urine Mucus Few /HPF (NEGATIVE) 10/29/21 22:27 Ur Culture Indicated? No/not indicated 10/29/21 22:27 SARS-CoV-2 (PCR) Negative (NEGATIVE) 10/29/21 23:26 Influenza Type A (PCR) Negative (NEGATIVE) 10/29/21 23:26 Influenza Type B (PCR) Negative (NEGATIVE) 10/29/21 23:26 RSV (PCR) Negative (NEGATIVE) 10/29/21 23:26 SARS CoV-2 RNA Rapid YVON Negative (NEGATIVE) 10/29/21 20:19 Review of Systems Constitutional: Weakness; denies Fever and Chills Eyes: No Symptoms Reported ENT: No Symptoms Reported Respiratory: Shortness of Breath Cardiovascular: No Symptoms Reported Gastrointestinal: No Symptoms Reported Genitourinary: No Symptoms Reported Musculoskeletal: No Symptoms Reported Skin: No Symptoms Reported Neurological: Weakness and Other (Loss of appetite ) Physical Exam Vital Signs: Temperature 97.9 F Pulse Rate 100 Respiratory Rate 17 Blood Pressure [Left Arm] 110/69 Blood Pressure 120/66 O2 Sat by Pulse Oximetry 100 Oriented: Other (lethargic, will arouse to questions) Eyes: Normal Ear: Normal Nose: Normal Throat: Normal Respiratory: Diminished Throughout Cardiovascular: Normal : Normal Auscultation: Bowel Sounds: Normal Palpation: Normal Tenderness: Normal Skin: Normal Musculoskeletal: Instability Mood Description: Calm Assessment/Plan (1) COPD exacerbation: Status: Acute (2) Hyponatremia: Status: Acute (3) Neutrophilic leukocytosis: Status: Acute (4) Acute dehydration: Status: Acute Review H&P Reviewed: Yes Patient was examined?: Yes
[2021-10-31] MEDS: PriLOSEC PO SCH (08:05)
[2021-10-31] MEDS: CELEXA PO SCH (08:05)
[2021-10-31] MEDS: ATIVAN TAB 0.5 MG PO SCH (08:05)
[2021-10-31] MEDS: LOVENOX INJ 30 MG SYR SC SCH (08:06)
[2021-10-31] MEDS: K-RIDER 10 MEQ/NS 100 ML 10 MEQ/100 ML BAG IV PRN ×4 (08:14→12:43)
[2021-10-31] MEDS: MAGNESIUM SULFATE 1 GRAM/100 mL PREMIX 1 G/100 ML BAG IV PRN ×2 (08:14→09:41)
[2021-10-31] MEDS: NORCO 5/325 MG TAB PO PRN ×2 (08:30→18:27)
[2021-10-31] MEDS: D5 NS 1,000 ML IV 1,000 ML IV SCH ×2 (08:37→16:49)
--- NOTE | 2021-10-31 10:38 | RAD ---
HISTORYSOB, PT EXTREMELY KYPHOTIC-BEST VIEWSSTUDYCHEST x-ray, 1 VIEWCOMPARISONX-ray 10/29/2021FINDINGSLikely moderate pleural effusions have worsened since prior study. Heart size is obscured. Atelectasis or pneumonia is likely present in the lung bases, increased from prior study. Pulmonary edema would be another possible etiology. No pneumothorax is seen.IMPRESSIONLikely moderate pleural effusions have worsened since prior study with increasing atelectasis and/or pneumonia in the lower lungs. However, consider possible CHF and pulmonary edema, also. Heart size is obscured on this study.Electronically signed by: Fabrizio Ernandez (Oct 31, 2021 10:37:07)
[2021-10-31] MEDS: LEVAQUIN PREMIX IV 750 MG 750 MG/150 ML BAG IV SCH (10:40)
--- NOTE | 2021-10-31 10:54 | PCM.PROG ---
Progress Note Progress Note for Day of Date of Exam: 10/31/21 Subjective Subjective: Pt is a 71 year old male past medical history of COPD, Hypertension, OA, admitted for Hyponatremia, COPD exacerbation, neutrophilic leukocytosis. This morning he appears to have improved. His mental status is close to baseline. He is answering questions appropriately. Labs/imaging: Wbc 23>19, Hgb 12.4, Plt 340, Na 128, K 3.2, Creatinine 0.35, Glucose 103, Urine/Blood culture pending, Chest XR: Likely moderate pleural effusions have worsened since prior study with increasing atelectasis and/or pneumonia in the lower lungs. However, consider possible CHF and pulmonary edema, also. Heart size is obscured on this study. Will give IV Lasix 40mg x 1 dose. Will also increase rate on D5 NS to 75ml/h. Allow for correction of Na between 8 to 10 per 24 hours. Change antibiotics from Zosyn to Levaquin. Continue scheduled bronchodilators, supplemental oxygen, wean as tolerated. Continue home medications, order physical therapy. Continue to closely monitor and follow up labs/imaging. Time spent on clinical assessment, reviewing labs and imaging, decision making, and documentation greater than 45 minutes. Past Medical Family Social History Past Med/Fam/Surg Hx: No changes since H&P Allergies: Allergies clindamycin Allergy (Verified 09/18/20 15:36) ketorolac [From Toradol] Allergy (Verified 09/18/20 15:36) Review of Systems ROS: No change since H&P Vital Signs and I&O's Vital Signs: Temperature 97.9 F Pulse Rate 92 Respiratory Rate 18 Blood Pressure [Left Arm] 110/69 Blood Pressure 132/70 O2 Sat by Pulse Oximetry 92 Intake and Output: Intake & Output 10/28/21 10/29/21 10/30/21 10/31/21 23:59 23:59 23:59 23:59 Intake Total 2061 / 2061 283 / 283 Output Total 2124 / 2124 250 / 250 Balance -63 / -63 Physical Exam Oriented: Normal Eyes: Normal Ear: Normal Nose: Normal Throat: Normal Respiratory: Diminished and [place] Cardiovascular: Normal : Normal Auscultation: Bowel Sounds: Normal Tenderness: Normal Skin: Normal Musculoskeletal: Instability Mood Description: Calm Speech Pattern: Slurred Laboratory and Diagnostics Result Diagrams: 10/31/21 04:30 10/31/21 04:30 Labs: 10/30/21 12:00 Urine,Clean Catch Urine Culture - Preliminary Laboratory WBC 19.0 X10^3/uL (3.6-10.0) H 10/31/21 04:30 RBC 3.64 X10^6/uL (4.7-6.0) L 10/31/21 04:30 Hgb 12.4 g/dL (13.5-18.0) L 10/31/21 04:30 Hct 36.3 % (42.0-54.0) L 10/31/21 04:30 MCV 99.8 fL (80.0-100.0) 10/31/21 04:30 MCH 34.1 pg (27.0-34.0) H 10/31/21 04:30 MCHC 34.2 g/dL (33.0-35.0) 10/31/21 04:30 RDW 13.1 % (11.6-16.5) 10/31/21 04:30 Plt Count 340 X10^3/uL (150.0-450.0) 10/31/21 04:30 Plt Count Comment Adequate (ADEQUATE) 10/31/21 04:30 MPV 6.3 fL (7.4-11.0) L 10/31/21 04:30 Neut % (Auto) 90.6 % (42.0-75.0) H 10/31/21 04:30 Lymph % (Auto) 3.0 % (21.0-51.0) L 10/31/21 04:30 [place] % (Auto) 6.3 % (0.0-13.0) 10/31/21 04:30 Eos % (Auto) 0.0 % (0.9-2.9) L 10/31/21 04:30 Baso % (Auto) 0.1 % (0.2-1.0) L 10/31/21 04:30 Neut # (Auto) 17.2 x10^3/uL (2.2-4.8) H 10/31/21 04:30 Lymph # (Auto) 0.6 X10^3/uL (1.3-2.9) L 10/31/21 04:30 [place] # (Auto) 1.2 x10^3/uL (0.3-0.8) H 10/31/21 04:30 Eos # (Auto) 0.0 x10^3/uL (0.0-0.2) 10/31/21 04:30 Baso # (Auto) 0.0 X10^3/uL (0.0-0.1) 10/31/21 04:30 Absolute Nucleated RBC 0.0 /100WBC 10/31/21 04:30 Total Counted 100 10/31/21 04:30 Neutrophils % (Manual) 89 % (39-76) H 10/31/21 04:30 Lymphocytes % (Manual) 9 % (13-43) L 10/31/21 04:30 Monocytes % (Manual) 2 % (4-9) L 10/31/21 04:30 Eosinophils % (Manual) 2 % (0-6) 10/29/21 18:25 Plt Morphology Comment Normal (NORMAL) 10/31/21 04:30 RBC Morphology Normal (NORMAL) 10/31/21 04:30 D-Dimer 0.60 ug/ml (0.0-0.57) H* 10/29/21 23:05 Sample Site Rrad 10/29/21 19:28 ABG pH 7.400 (7.35-7.45) 10/29/21 19:28 ABG pCO2 43.0 mmHg (35.0-45.0) 10/29/21 19:28 ABG pO2 45.0 mmHg (80.0-100.0) L* 10/29/21 19:28 ABG HCO3 26.6 mmol/L (22-26) H 10/29/21 19:28 ABG O2 Saturation 81.0 % (90-100) L* 10/29/21 19:28 ABG Base Excess 1.5 mmol/L (-2.0-2.0) 10/29/21 19:28 Ben Test Pos 10/29/21 19:28 A-a Gradient 51.0 mmHg 10/29/21 19:28 FiO2 21.0 10/29/21 19:28 Blood Gas Comments Amanda well ms/mtf 10/29/21 19:28 Sodium 128 mmol/L (136-145) L 10/31/21 04:30 Corrected Sodium TNP 10/31/21 04:30 Potassium 3.2 mmol/L (3.5-5.1) L 10/31/21 04:30 Chloride 90 mmol/L (98-107) L 10/31/21 04:30 Carbon Dioxide 29.6 mmol/L (21-32) 10/31/21 04:30 BUN 10 mg/dL (7-18) 10/31/21 04:30 Creatinine 0.35 mg/dL (0.70-1.30) L 10/31/21 04:30 Est GFR (MDRD) Af Amer > 60 (>60) 10/31/21 04:30 Est GFR (MDRD) Non-Af > 60 (>60) 10/31/21 04:30 Glucose 103 mg/dL (65-99) H 10/31/21 04:30 POC Glucose (mg/dL) 130 mg/dL (65-99) H 10/30/21 11:53 Lactic Acid 1.2 mmol/L (0.4-2.0) 10/30/21 07:20 Calcium 8.4 mg/dL (8.5-10.1) L 10/31/21 04:30 Corrected Calcium 10.0 mg/dL (8.5-10.1) 10/31/21 04:30 Magnesium 1.6 mg/dL (1.7-2.9) L 10/31/21 04:30 Total Bilirubin 0.50 mg/dL (0.2-1.0) 10/31/21 04:30 AST 28 Units/L (15-37) 10/31/21 04:30 ALT 43 Units/L (12-78) 10/31/21 04:30 Alkaline Phosphatase 60 Units/L (46-116) 10/31/21 04:30 Total Protein 5.6 g/dL (6.4-8.2) L 10/31/21 04:30 Albumin 2.0 g/dL (3.4-5.0) L 10/31/21 04:30 Globulin 3.6 g/dL (2.5-4.5) 10/31/21 04:30 Albumin/Globulin Ratio 0.6 Ratio (1.1-2.1) L 10/31/21 04:30 Specimen Type Catherized urine 10/29/21 22:27 Urine Color Yellow (YELLOW) 10/29/21 22: Urine Appearance Clear (CLEAR) 10/29/21 22: Urine pH 6.0 (5.0 - 8.0) 10/29/21 22: Ur Specific [place] 1.015 (1.000-1.030) 10/29/21 22: Urine Protein 2+ (NEGATIVE) 10/29/21 22: Urine Glucose (UA) Negative (NEGATIVE) 10/29/21 22: Urine Ketones 3+ (NEGATIVE) 10/29/21 22: Urine Occult Blood 4+ (NEGATIVE) 10/29/21 22: Urine Nitrite Negative (NEGATIVE) 10/29/21 22: Urine Bilirubin Negative (NEGATIVE) 10/29/21 22: Urine Urobilinogen Normal (NORMAL) 10/29/21 22: Ur Leukocyte Esterase Negative (NEGATIVE) 10/29/21 22: Urine RBC 0-2 /HPF (0-3) 10/29/21 22: Urine WBC None seen /HPF (0-5) 10/29/21 22: Ur Squamous Epith Cells Few /HPF (NEGATIVE) 10/29/21 22: Amorphous Sediment 2+ /HPF (NEGATIVE) 10/29/21 22: Urine Bacteria Trace /HPF (NEGATIVE) 10/29/21 22: Hyaline Casts Moderate /LPF (NEGATIVE) 10/29/21 22: Urine Mucus Few /HPF (NEGATIVE) 10/29/21 22: Ur Culture Indicated? No/not indicated 10/29/21 22:27 SARS-CoV-2 (PCR) Negative (NEGATIVE) 10/29/21 23:26 Influenza Type A (PCR) Negative (NEGATIVE) 10/29/21 23:26 Influenza Type B (PCR) Negative (NEGATIVE) 10/29/21 23:26 RSV (PCR) Negative (NEGATIVE) 10/29/21 23:26 SARS CoV-2 RNA Rapid YVON Negative (NEGATIVE) 10/29/21 20:19 Plan (1) COPD exacerbation: Status: Acute (2) Hyponatremia: Status: Acute (3) Neutrophilic leukocytosis: Status: Acute (4) Acute dehydration: Status: Acute
[2021-10-31] MEDS ORDERED: LASIX IVP ONE (10:55)
[2021-10-31] MEDS ORDERED: BROVANA ONE (19:07)
[2021-10-31] MEDS ORDERED: PULMICORT NEB TX 0.5 MG NEB ONE (19:07)
[2021-10-31] MEDS: PULMICORT NEB TX 0.5 MG NEB SCH (20:00)
[2021-10-31] MEDS: BROVANA IN SCH (20:00)
[2021-10-31] MEDS: SNACK - Diabetic Appropriate PO SCH (20:00)
[2021-11-01] MEDS: NORCO 5/325 MG TAB PO PRN (03:58)
[2021-11-01] MEDS: D5 NS 1,000 ML IV 1,000 ML IV SCH ×2 (05:00→20:28)
[2021-11-01 06:40] LABS: BASOPHILS % (AUTO) 0.1 % (0.2-1.0); HEMATOCRIT 33.7 % (42.0-54.0); HEMOGLOBIN 11.8 g/dL (13.5-18.0); LYMPHOCYTES # (AUTO) 0.7 X10^3/uL (1.3-2.9); LYMPHOCYTES % (AUTO) 3.4 % (21.0-51.0); MEAN CORPUSCULAR HEMOGLOBIN 35.1 pg (27.0-34.0); MEAN CORPUSCULAR HGB CONC 34.9 g/dL (33.0-35.0); MEAN CORPUSCULAR VOLUME 100.3 fL (80.0-100.0); MEAN PLATELET VOLUME 6.3 fL (7.4-11.0); MONOCYTES # (AUTO) 1.1 x10^3/uL (0.3-0.8); MONOCYTES % (AUTO) 5.7 % (0.0-13.0); NEUTROPHILS % (AUTO) 90.8 % (42.0-75.0); PLATELET COUNT 309 X10^3/uL (150.0-450.0); RED BLOOD COUNT 3.36 X10^6/uL (4.7-6.0); RED CELL DISTRIBUTION WIDTH 13.1 % (11.6-16.5); WHITE BLOOD COUNT 19.8 X10^3/uL (3.6-10.0)
[2021-11-01 06:51] LABS: ALANINE AMINOTRANSFERASE 37 Units/L (12-78); ALBUMIN 1.8 g/dL (3.4-5.0); ALKALINE PHOSPHATASE 72 Units/L (46-116); ASPARTATE AMINO TRANSFERASE 19 Units/L (15-37); BLOOD UREA NITROGEN 9 mg/dL (7-18); CALCIUM 8.5 mg/dL (8.5-10.1); CARBON DIOXIDE 35.8 mmol/L (21-32); CHLORIDE 94 mmol/L (98-107); COR CA(FOR HYPOALB) 10.3 mg/dL (8.5-10.1); COR NA(FOR HYPERGLY) 132 mmol/L (136-145); CREATININE 0.26 mg/dL (0.70-1.30); MAGNESIUM 1.2 mg/dL (1.7-2.9); SODIUM 131 mmol/L (136-145); TOTAL PROTEIN 5.5 g/dL (6.4-8.2); eGFR NON BLACK RACES > 60 (>60)
--- NOTE | 2021-11-01 07:16 | RAD ---
HISTORYCHF F/USTUDYCHEST, 1 [id number]/11/2022.TECHNIQUEAP view of the chestFINDINGSSimilar appearance of the cardiac and mediastinal silhouettes. Similar appearance of right worse than left base pleural parenchymal opacities. Patient's chin obscures portions of the left lung apex. No discernible pneumothorax.IMPRESSIONNo significant change. Bibasilar pleural parenchymal opacities may represent any combination of atelectasis, pneumonia, or pleural effusion.Electronically signed by: Eduard Villatoro (Nov 01, 2021 07:15:25)
[2021-11-01 07:40] LABS: BAND NEUTROPHILS % 1 % (0-10)
[2021-11-01 07:41] LABS: PLATELET MORPHOLOGY COMMENT NORMAL (NORMAL)
[2021-11-01] MEDS: PULMICORT NEB TX 0.5 MG NEB SCH ×2 (08:05→20:43)
[2021-11-01] MEDS: BROVANA IN SCH ×2 (08:05→20:43)
[2021-11-01] MEDS: ATIVAN TAB 0.5 MG PO SCH (08:22)
[2021-11-01] MEDS: CELEXA PO SCH (08:23)
[2021-11-01] MEDS: PriLOSEC PO SCH (08:23)
[2021-11-01] MEDS: LEVAQUIN PREMIX IV 750 MG 750 MG/150 ML BAG IV SCH (08:23)
[2021-11-01] MEDS: LOVENOX INJ 30 MG SYR SC SCH (08:23)
[2021-11-01] MEDS: NORCO 10/325 TAB PO PRN ×2 (10:04→16:17)
[2021-11-01] MEDS: MAGNESIUM SULFATE 1 GRAM/100 mL PREMIX 1 G/100 ML BAG IV PRN ×4 (10:45→16:12)
[2021-11-01] MEDS ORDERED: HYDROGEN PEROXIDE 3% ONE (10:49)
--- NOTE | 2021-11-01 11:02 | PCM.PROG ---
Progress Note Progress Note for Day of Date of Exam: 11/01/21 Subjective Subjective: Pt is a 71 year old male past medical history of COPD, Hypertension, OA, admitted for Hyponatremia, COPD exacerbation, neutrophilic leukocytosis. This morning he is alert and oriented. No acute events overnight. Labs/imaging: Wbc 19.8, Hgb 11.8, Plt 309, Na 131, K 3.1, Creatinine 0.26, Glucose 123, Urine/Blood culture NGTD, Chest XR: No significant change. Bibasilar pleural parenchymal opacities may represent any combination of atelectasis, pneumonia, or pleural effusion. Hyponatremia improving, continue D5 NS to 75ml/h. Allow for correction of Na between 8 to 10 per 24 hours. Change antibiotics Levaquin. Continue scheduled bronchodilators, supplemental oxygen, wean as tolerated. Con tinue home medications, physical therapy. Add Ensure for better nutrition. 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 Continue to closely monitor and follow up labs/imaging. Time spent on clinical assessment, reviewing labs and imaging, decision making, and documentation greater than 45 minutes. Past Medical Family Social History Past Med/Fam/Surg Hx: No changes since H&P Allergies: Allergies clindamycin Allergy (Verified 09/18/20 15:36) ketorolac [From Toradol] Allergy (Verified 09/18/20 15:36) Review of Systems ROS: No change since H&P Vital Signs and I&O's Vital Signs: Temperature 97.6 F Pulse Rate 104 Respiratory Rate 23 Blood Pressure [Left Arm] 110/69 Blood Pressure 134/66 O2 Sat by Pulse Oximetry 96 Intake and Output: Intake & Output 10/29/21 10/30/21 10/31/21 11/01/21 23:59 23:59 23:59 23:59 Intake Total 2061 / 2061 2170 / 2170 540 / 540 Output Total 2124 / 2124 2099 / 2099 400 / 400 Balance -63 / -63 70 / 70 140 / 140 Physical Exam Oriented: Normal Eyes: Normal Ear: Normal Nose: Normal Throat: Normal Respiratory: Diminished Cardiovascular: Normal : Normal Auscultation: Bowel Sounds: Normal Tenderness: Normal Skin: Normal Musculoskeletal: Instability Mood Description: Calm Speech Pattern: Appropriate, Unclear and Slurred Laboratory and Diagnostics Result Diagrams: 11/01/21 06:12 11/01/21 06:12 Labs: 10/30/21 12:00 Urine,Clean Catch Urine Culture - Final 10/29/21 19:55 Blood Blood Culture - Preliminary 10/29/21 19:50 Blood Blood Culture - Preliminary Laboratory WBC 19.8 X10^3/uL (3.6-10.0) H 11/01/21 06:12 RBC 3.36 X10^6/uL (4.7-6.0) L 11/01/21 06:12 Hgb 11.8 g/dL (13.5-18.0) L 11/01/21 06:12 Hct 33.7 % (42.0-54.0) L 11/01/21 06:12 MCV 100.3 fL (80.0-100.0) H 11/01/21 06:12 MCH 35.1 pg (27.0-34.0) H 11/01/21 06:12 MCHC 34.9 g/dL (33.0-35.0) 11/01/21 06:12 RDW 13.1 % (11.6-16.5) 11/01/21 06:12 Plt Count 309 X10^3/uL (150.0-450.0) 11/01/21 06:12 Plt Count Comment Adequate (ADEQUATE) 11/01/21 06:12 MPV 6.3 fL (7.4-11.0) L 11/01/21 06:12 Neut % (Auto) 90.8 % (42.0-75.0) H 11/01/21 06:12 Lymph % (Auto) 3.4 % (21.0-51.0) L 11/01/21 06:12 [place] % (Auto) 5.7 % (0.0-13.0) 11/01/21 06:12 Eos % (Auto) 0.0 % (0.9-2.9) L 11/01/21 06:12 Baso % (Auto) 0.1 % (0.2-1.0) L 11/01/21 06:12 Neut # (Auto) 18.0 x10^3/uL (2.2-4.8) H 11/01/21 06:12 Lymph # (Auto) 0.7 X10^3/uL (1.3-2.9) L 11/01/21 06:12 [place] # (Auto) 1.1 x10^3/uL (0.3-0.8) H 11/01/21 06:12 Eos # (Auto) 0.0 x10^3/uL (0.0-0.2) 11/01/21 06:12 Baso # (Auto) 0.0 X10^3/uL (0.0-0.1) 11/01/21 06:12 Absolute Nucleated RBC 0.0 /100WBC 11/01/21 06:12 Total Counted 100 11/01/21 06:12 Neutrophils % (Manual) 90 % (39-76) H 11/01/21 06:12 Band Neutrophils % 1 % (0-10) 11/01/21 06:12 Lymphocytes % (Manual) 5 % (13-43) L 11/01/21 06:12 Monocytes % (Manual) 4 % (4-9) 11/01/21 06:12 Eosinophils % (Manual) 2 % (0-6) 10/29/21 18:25 Plt Morphology Comment Normal (NORMAL) 11/01/21 06:12 RBC Morphology Abnormal (NORMAL) 11/01/21 06:12 Macrocytosis Slight A 11/01/21 06:12 D-Dimer 0.60 ug/ml (0.0-0.57) H* 10/29/21 23:05 Sample Site Rrad 10/29/21 19:28 ABG pH 7.400 (7.35-7.45) 10/29/21 19:28 ABG pCO2 43.0 mmHg (35.0-45.0) 10/29/21 19:28 ABG pO2 45.0 mmHg (80.0-100.0) L* 10/29/21 19:28 ABG HCO3 26.6 mmol/L (22-26) H 10/29/21 19:28 ABG O2 Saturation 81.0 % (90-100) L* 10/29/21 19:28 ABG Base Excess 1.5 mmol/L (-2.0-2.0) 10/29/21 19:28 Ben Test Pos 10/29/21 19:28 A-a Gradient 51.0 mmHg 10/29/21 19:28 FiO2 21.0 10/29/21 19:28 Blood Gas Comments Amanda well ms/mtf 10/29/21 19:28 Sodium 131 mmol/L (136-145) L 11/01/21 06:12 Corrected Sodium 132 mmol/L (136-145) L 11/01/21 06:12 Potassium 3.1 mmol/L (3.5-5.1) L 11/01/21 06:12 Chloride 94 mmol/L (98-107) L 11/01/21 06:12 Carbon Dioxide 35.8 mmol/L (21-32) H 11/01/21 06:12 BUN 9 mg/dL (7-18) 11/01/21 06:12 Creatinine 0.26 mg/dL (0.70-1.30) L 11/01/21 06:12 Est GFR (MDRD) Af Amer > 60 (>60) 11/01/21 06:12 Est GFR (MDRD) Non-Af > 60 (>60) 11/01/21 06:12 Glucose 123 mg/dL (65-99) H 11/01/21 06:12 POC Glucose (mg/dL) 130 mg/dL (65-99) H 10/30/21 11:53 Lactic Acid 1.2 mmol/L (0.4-2.0) 10/30/21 07:20 Calcium 8.5 mg/dL (8.5-10.1) 11/01/21 06:12 Corrected Calcium 10.3 mg/dL (8.5-10.1) H 11/01/21 06:12 Magnesium 1.2 mg/dL (1.7-2.9) L 11/01/21 06:12 Total Bilirubin 0.30 mg/dL (0.2-1.0) 11/01/21 06:12 AST 19 Units/L (15-37) 11/01/21 06:12 ALT 37 Units/L (12-78) 11/01/21 06:12 Alkaline Phosphatase 72 Units/L (46-116) 11/01/21 06:12 Total Protein 5.5 g/dL (6.4-8.2) L 11/01/21 06:12 Albumin 1.8 g/dL (3.4-5.0) L 11/01/21 06:12 Globulin 3.7 g/dL (2.5-4.5) 11/01/21 06:12 Albumin/Globulin Ratio 0.5 Ratio (1.1-2.1) L 11/01/21 06:12 Specimen Type Catherized urine 10/29/21 22: Urine Color Yellow (YELLOW) 10/29/21 22: Urine Appearance Clear (CLEAR) 10/29/21 22: Urine pH 6.0 (5.0 - 8.0) 10/29/21: Ur Specific [place] 1.015 (1.000-1.030) 10/29/21 22: Urine Protein 2+ (NEGATIVE) 10/29/21 22: Urine Glucose (UA) Negative (NEGATIVE) 10/29/21: Urine Ketones 3+ (NEGATIVE) 10/29/21: Urine Occult Blood 4+ (NEGATIVE) 10/29/21 22: Urine Nitrite Negative (NEGATIVE) 10/29/21 22: Urine Bilirubin Negative (NEGATIVE) 10/29/21: Urine Urobilinogen Normal (NORMAL) 10/29/21: Ur Leukocyte Esterase Negative (NEGATIVE) 10/29/21 22: Urine RBC 0-2 /HPF (0-3) 10/29/21 22: Urine WBC None seen /HPF (0-5) 10/29/21 22: Ur Squamous Epith Cells Few /HPF (NEGATIVE) 10/29/21 22: Amorphous Sediment 2+ /HPF (NEGATIVE) 10/29/21 22: Urine Bacteria Trace /HPF (NEGATIVE) 10/29/21: Hyaline Casts Moderate /LPF (NEGATIVE) 10/29/21 22: Urine Mucus Few /HPF (NEGATIVE) 10/29/21 22: Ur Culture Indicated? No/not indicated 10/29/21 22: SARS-CoV-2 (PCR) Negative (NEGATIVE) 10/29/21 23: Influenza Type A (PCR) Negative (NEGATIVE) 10/29/21 23: Influenza Type B (PCR) Negative (NEGATIVE) 10/29/21 23: RSV (PCR) Negative (NEGATIVE) 10/29/21 23: SARS CoV-2 RNA Rapid YVON Negative (NEGATIVE) 10/29/21 20:19 Plan (1) COPD exacerbation: Status: Acute (2) Hyponatremia: Status: Acute (3) Neutrophilic leukocytosis: Status: Acute (4) Acute dehydration: Status: Acute
[2021-11-01 11:21] VITALS: BMI 14.7
[2021-11-01] MEDS: K-RIDER 10 MEQ/NS 100 ML 10 MEQ/100 ML BAG IV PRN ×3 (18:02→21:32)
[2021-11-01] MEDS ORDERED: RESTORIL CAP 15 MG PO PRN (20:41)
[2021-11-01] MEDS: SNACK - Diabetic Appropriate PO SCH (20:42)
[2021-11-01] MEDS ORDERED: COLACE CAP 100 MG PO SCH (21:00)
[2021-11-01] MEDS ORDERED: MILK OF MAGNESIA PO SCH (21:00)
[2021-11-02] MEDS: D5 NS 1,000 ML IV 1,000 ML IV SCH ×2 (00:56→12:25)
[2021-11-02] MEDS: K-RIDER 10 MEQ/NS 100 ML 10 MEQ/100 ML BAG IV PRN (01:59)
[2021-11-02 05:04] LABS: BASOPHILS % (AUTO) 0.2 % (0.2-1.0); EOSINOPHILS % (AUTO) 0.1 % (0.9-2.9); HEMATOCRIT 34.8 % (42.0-54.0); LYMPHOCYTES # (AUTO) 0.7 X10^3/uL (1.3-2.9); LYMPHOCYTES % (AUTO) 3.8 % (21.0-51.0); MEAN CORPUSCULAR HEMOGLOBIN 34.6 pg (27.0-34.0); MEAN CORPUSCULAR HGB CONC 34.4 g/dL (33.0-35.0); MEAN CORPUSCULAR VOLUME 100.8 fL (80.0-100.0); MEAN PLATELET VOLUME 6.4 fL (7.4-11.0); MONOCYTES # (AUTO) 1.4 x10^3/uL (0.3-0.8); MONOCYTES % (AUTO) 7.4 % (0.0-13.0); NEUTROPHILS # (AUTO) 16.8 x10^3/uL (2.2-4.8); NEUTROPHILS % (AUTO) 88.5 % (42.0-75.0); PLATELET COUNT 320 X10^3/uL (150.0-450.0); RED BLOOD COUNT 3.45 X10^6/uL (4.7-6.0); RED CELL DISTRIBUTION WIDTH 13.3 % (11.6-16.5)
[2021-11-02 05:13] LABS: ALANINE AMINOTRANSFERASE 32 Units/L (12-78); ALBUMIN 1.8 g/dL (3.4-5.0); ALKALINE PHOSPHATASE 67 Units/L (46-116); ASPARTATE AMINO TRANSFERASE 21 Units/L (15-37); BLOOD UREA NITROGEN 8 mg/dL (7-18); CALCIUM 8.4 mg/dL (8.5-10.1); CARBON DIOXIDE 34.9 mmol/L (21-32); CHLORIDE 96 mmol/L (98-107); COR CA(FOR HYPOALB) 10.2 mg/dL (8.5-10.1); COR NA(FOR HYPERGLY) 133 mmol/L (136-145); CREATININE 0.25 mg/dL (0.70-1.30); SODIUM 133 mmol/L (136-145); TOTAL PROTEIN 5.7 g/dL (6.4-8.2); eGFR NON BLACK RACES > 60 (>60)
[2021-11-02] MEDS: LEVAQUIN PREMIX IV 750 MG 750 MG/150 ML BAG IV SCH (08:00)
[2021-11-02] MEDS: PULMICORT NEB TX 0.5 MG NEB SCH (09:38)
[2021-11-02] MEDS: BROVANA IN SCH (09:38)
[2021-11-02] MEDS: LOVENOX INJ 30 MG SYR SC SCH (09:40)
[2021-11-02] MEDS: ATIVAN TAB 0.5 MG PO SCH (09:40)
[2021-11-02] MEDS: CELEXA PO SCH (09:41)
[2021-11-02] MEDS: PriLOSEC PO SCH (09:41)
[2021-11-02 09:53] LABS: CKMB % 4.5 % (<4); CREATINE KINASE MB 1.7 ng/mL (0-4.0)
[2021-11-02 13:47] VITALS: BP 155/73
--- NOTE | 2021-11-03 13:11 | W.DIS.FURT ---
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 Pt was treated with D5 NS@125ml/h. Allowed for correction of Na between 8 to 10 per 24 hours. Received antibiotics Levaquin. Scheduled bronchodilators, supplemental oxygen. Pt responded to treatments, Na back to baseline. Urine/Blood culture NGTD. project manager interior design discussed with patient's daughter, family members will be staying with patient at home. He was discharged in stable condition, Rx levaquin, and recommended a dose reduction of xanax. Instructed to follow up with pcp in 3-5 days. Vital Signs: Vital Signs (72 hours) 10/31/21 13:30 10/31/21 14:00 10/31/21 14:30 Temperature Pulse Rate 99 H 102 H 99 H Respiratory Rate 19 21 20 Blood Pressure 113/64 O2 Sat by Pulse Oximetry 97 97 97 10/31/21 15:00 10/31/21 15:30 10/31/21 16:00 Temperature 98.0 F Pulse Rate 106 H 105 H 100 H Respiratory Rate 27 H 27 H 23 Blood Pressure 126/59 124/63 O2 Sat by Pulse Oximetry 96 96 95 10/31/21 16:30 10/31/21 17:00 10/31/21 17:30 Temperature Pulse Rate 96 H 110 H 105 H Respiratory Rate 18 28 H 29 H Blood Pressure 128/70 O2 Sat by Pulse Oximetry 96 96 97 10/31/21 18:00 10/31/21 18:27 10/31/21 19:00 Temperature Pulse Rate 106 H 99 H Respiratory Rate 28 H 26 H 24 Blood Pressure 127/62 124/63 O2 Sat by Pulse Oximetry 98 96 10/31/21 19:27 10/31/21 20:00 10/31/21 21:00 Temperature 97.9 F Pulse Rate 97 H 96 H Respiratory Rate 20 28 H 17 Blood Pressure 117/67 126/69 O2 Sat by Pulse Oximetry 97 97 10/31/21 22:00 10/31/21 23:00 11/01/21 00:00 Temperature 97.7 F Pulse Rate 100 H 94 H 91 H Respiratory Rate 18 26 H 30 H Blood Pressure 130/73 135/70 130/63 O2 Sat by Pulse Oximetry 97 95 96 11/01/21 01:00 11/01/21 02:00 11/01/21 03:00 Temperature Pulse Rate 96 H 93 H 95 H Respiratory Rate 23 23 28 H Blood Pressure 137/73 140/80 149/70 O2 Sat by Pulse Oximetry 96 97 99 11/01/21 03:58 11/01/21 04:00 11/01/21 04:58 Temperature 98.0 F Pulse Rate 100 H Respiratory Rate 26 H 30 H 20 Blood Pressure 148/81 O2 Sat by Pulse Oximetry 99 11/01/21 05:00 11/01/21 06:00 11/01/21 07:00 Temperature Pulse Rate 86 97 H 92 H Respiratory Rate 30 H 21 23 Blood Pressure 149/74 160/75 162/78 O2 Sat by Pulse Oximetry 100 100 99 11/01/21 08:00 11/01/21 08:05 11/01/21 09:00 Temperature 97.6 F Pulse Rate 83 102 H Respiratory Rate 24 33 H Blood Pressure 151/71 143/70 O2 Sat by Pulse Oximetry 99 96 94 L 11/01/21 10:00 11/01/21 10:04 11/01/21 11:00 Temperature Pulse Rate 104 H 97 H Respiratory Rate 25 H 23 20 Blood Pressure 134/66 123/80 O2 Sat by Pulse Oximetry 96 94 L 11/01/21 11:04 11/01/21 12:00 11/01/21 13:00 Temperature 97.8 F Pulse Rate 89 94 H Respiratory Rate 20 15 23 Blood Pressure 129/67 137/70 O2 Sat by Pulse Oximetry 97 94 L 11/01/21 14:00 11/01/21 15:00 11/01/21 16:00 Temperature 97.8 F Pulse Rate 93 H 98 H 97 H Respiratory Rate 19 21 19 Blood Pressure 141/69 144/69 125/72 O2 Sat by Pulse Oximetry 96 96 97 11/01/21 16:17 11/01/21 17:00 11/01/21 17:17 Temperature Pulse Rate 96 H Respiratory Rate 19 21 21 Blood Pressure 131/79 O2 Sat by Pulse Oximetry 94 L 11/01/21 18:00 11/01/21 19:00 11/01/21 20:00 Temperature Pulse Rate 85 100 H 97 H Respiratory Rate 16 22 21 Blood Pressure 131/72 129/65 129/69 O2 Sat by Pulse Oximetry 94 L 98 99 11/01/21 20:43 11/01/21 21:00 11/01/21 22:00 Temperature 97.8 F Pulse Rate 100 H 102 H 99 H Respiratory Rate 21 14 Blood Pressure 133/73 138/70 O2 Sat by Pulse Oximetry 100 95 92 L 11/01/21 23:00 11/02/21 00:00 11/02/21 01:00 Temperature 97.8 F Pulse Rate 100 H 101 H 98 H Respiratory Rate 19 17 24 Blood Pressure 135/67 134/72 134/71 O2 Sat by Pulse Oximetry 93 L 94 L 92 L 11/02/21 02:00 11/02/21 03:00 11/02/21 04:00 Temperature 97.9 F Pulse Rate 104 H 97 H 95 H Respiratory Rate 24 26 H 18 Blood Pressure 134/68 141/70 143/72 O2 Sat by Pulse Oximetry 92 L 92 L 92 L 11/02/21 05:00 11/02/21 06:00 11/02/21 07:00 Temperature Pulse Rate 88 96 H 100 H Respiratory Rate 19 20 22 Blood Pressure 142/69 145/72 147/77 O2 Sat by Pulse Oximetry 91 L 94 L 94 L 11/02/21 08:00 11/02/21 09:00 11/02/21 09:38 Temperature 97.9 F Pulse Rate 109 H 91 H 106 H Respiratory Rate 30 H 18 Blood Pressure 163/86 151/73 O2 Sat by Pulse Oximetry 93 L 94 L 93 L 11/02/21 10:00 11/02/21 11:00 11/02/21 12:00 Temperature Pulse Rate 106 H 101 H 109 H Respiratory Rate 30 H 25 H 30 H Blood Pressure 150/75 171/81 179/90 O2 Sat by Pulse Oximetry 97 93 L 95 11/02/21 13:00 Temperature Pulse Rate 104 H Respiratory Rate 30 H Blood Pressure 155/73 O2 Sat by Pulse Oximetry 90 L Labs: Laboratory Last Values WBC 19.0 X10^3/uL (3.6-10.0) H 11/02/21 04:45 RBC 3.45 X10^6/uL (4.7-6.0) L 11/02/21 04:45 Hgb 12.0 g/dL (13.5-18.0) L 11/02/21 04:45 Hct 34.8 % (42.0-54.0) L 11/02/21 04:45 MCV 100.8 fL (80.0-100.0) H 11/02/21 04:45 MCH 34.6 pg (27.0-34.0) H 11/02/21 04:45 MCHC 34.4 g/dL (33.0-35.0) 11/02/21 04:45 RDW 13.3 % (11.6-16.5) 11/02/21 04:45 Plt Count 320 X10^3/uL (150.0-450.0) 11/02/21 04:45 Plt Count Comment Adequate (ADEQUATE) 11/01/21 06:12 MPV 6.4 fL (7.4-11.0) L 11/02/21 04:45 Neut % (Auto) 88.5 % (42.0-75.0) H 11/02/21 04:45 Lymph % (Auto) 3.8 % (21.0-51.0) L 11/02/21 04:45 [place] % (Auto) 7.4 % (0.0-13.0) 11/02/21 04:45 Eos % (Auto) 0.1 % (0.9-2.9) L 11/02/21 04:45 Baso % (Auto) 0.2 % (0.2-1.0) 11/02/21 04:45 Neut # (Auto) 16.8 x10^3/uL (2.2-4.8) H 11/02/21 04:45 Lymph # (Auto) 0.7 X10^3/uL (1.3-2.9) L 11/02/21 04:45 [place] # (Auto) 1.4 x10^3/uL (0.3-0.8) H 11/02/21 04:45 Eos # (Auto) 0.0 x10^3/uL (0.0-0.2) 11/02/21 04:45 Baso # (Auto) 0.0 X10^3/uL (0.0-0.1) 11/02/21 04:45 Absolute Nucleated RBC 0.0 /100WBC 11/02/21 04:45 Total Counted 100 11/01/21 06:12 Neutrophils % (Manual) 90 % (39-76) H 11/01/21 06:12 Band Neutrophils % 1 % (0-10) 11/01/21 06:12 Lymphocytes % (Manual) 5 % (13-43) L 11/01/21 06:12 Monocytes % (Manual) 4 % (4-9) 11/01/21 06:12 Eosinophils % (Manual) 2 % (0-6) 10/29/21 18:25 Plt Morphology Comment Normal (NORMAL) 11/01/21 06:12 RBC Morphology Abnormal (NORMAL) 11/01/21 06:12 Macrocytosis Slight A 11/01/21 06:12 D-Dimer 0.60 ug/ml (0.0-0.57) H* 10/29/21 23:05 Sample Site Rrad 10/29/21 19:28 ABG pH 7.400 (7.35-7.45) 10/29/21 19:28 ABG pCO2 43.0 mmHg (35.0-45.0) 10/29/21 19:28 ABG pO2 45.0 mmHg (80.0-100.0) L* 10/29/21 19:28 ABG HCO3 26.6 mmol/L (22-26) H 10/29/21 19:28 ABG O2 Saturation 81.0 % (90-100) L* 10/29/21 19:28 ABG Base Excess 1.5 mmol/L (-2.0-2.0) 10/29/21 19:28 Ben Test Pos 10/29/21 19:28 A-a Gradient 51.0 mmHg 10/29/21 19:28 FiO2 21.0 10/29/21 19:28 Blood Gas Comments Amanda well ms/mtf 10/29/21 19:28 Sodium 133 mmol/L (136-145) L 11/02/21 04:45 Corrected Sodium 133 mmol/L (136-145) L 11/02/21 04:45 Potassium 4.6 mmol/L (3.5-5.1) 11/02/21 04:45 Chloride 96 mmol/L (98-107) L 11/02/21 04:45 Carbon Dioxide 34.9 mmol/L (21-32) H 11/02/21 04:45 BUN 8 mg/dL (7-18) 11/02/21 04:45 Creatinine 0.25 mg/dL (0.70-1.30) L 11/02/21 04:45 Est GFR (MDRD) Af Amer > 60 (>60) 11/02/21 04:45 Est GFR (MDRD) Non-Af > 60 (>60) 11/02/21 04:45 Glucose 117 mg/dL (65-99) H 11/02/21 04:45 POC Glucose (mg/dL) 130 mg/dL (65-99) H 10/30/21 11:53 Lactic Acid 1.2 mmol/L (0.4-2.0) 10/30/21 07:20 Calcium 8.4 mg/dL (8.5-10.1) L 11/02/21 04:45 Corrected Calcium 10.2 mg/dL (8.5-10.1) H 11/02/21 04:45 Magnesium 1.2 mg/dL (1.7-2.9) L 11/01/21 06:12 Total Bilirubin 0.30 mg/dL (0.2-1.0) 11/02/21 04:45 AST 21 Units/L (15-37) 11/02/21 04:45 ALT 32 Units/L (12-78) 11/02/21 04:45 Alkaline Phosphatase 67 Units/L (46-116) 11/02/21 04:45 Creatine Kinase 38 Units/L (39-308) L 11/02/21 09:26 CK-MB (CK-2) 1.7 ng/mL (0-4.0) 11/02/21 09:26 CK/CKMB % Calc 4.5 % (<4) 11/02/21 09:26 Troponin I High Sens 8.0 ng/L (4.0-60.0) 11/02/21 09:26 Total Protein 5.7 g/dL (6.4-8.2) L 11/02/21 04:45 Albumin 1.8 g/dL (3.4-5.0) L 11/02/21 04:45 Globulin 3.9 g/dL (2.5-4.5) 11/02/21 04:45 Albumin/Globulin Ratio 0.5 Ratio (1.1-2.1) L 11/02/21 04:45 Specimen Type Catherized urine 10/29/21: Urine Color Yellow (YELLOW) 10/29/21: Urine Appearance Clear (CLEAR) 10/29/21 22: Urine pH 6.0 (5.0 - 8.0) 10/29/21: Ur Specific [place] 1.015 (1.000-1.030) 10/29/21: Urine Protein 2+ (NEGATIVE) 10/29/21: Urine Glucose (UA) Negative (NEGATIVE) 10/29/21: Urine Ketones 3+ (NEGATIVE) 10/29/21: Urine Occult Blood 4+ (NEGATIVE) 10/29/21: Urine Nitrite Negative (NEGATIVE) 10/29/21: Urine Bilirubin Negative (NEGATIVE) 10/29/21: Urine Urobilinogen Normal (NORMAL) 10/29/21: Ur Leukocyte Esterase Negative (NEGATIVE) 10/29/21: Urine RBC 0-2 /HPF (0-3) 10/29/21 22: Urine WBC None seen /HPF (0-5) 10/29/21: Ur Squamous Epith Cells Few /HPF (NEGATIVE) 10/29/21: Amorphous Sediment 2+ /HPF (NEGATIVE) 10/29/21: Urine Bacteria Trace /HPF (NEGATIVE) 10/29/21: Hyaline Casts Moderate /LPF (NEGATIVE) 10/29/21: Urine Mucus Few /HPF (NEGATIVE) 10/29/21: Ur Culture Indicated? No/not indicated 10/29/21 SARS-CoV-2 (PCR) Negative (NEGATIVE) 10/29/21 23: Influenza Type A (PCR) Negative (NEGATIVE) 10/29/21 23: Influenza Type B (PCR) Negative (NEGATIVE) 10/29/21: RSV (PCR) Negative (NEGATIVE) 10/29/21 23:26 SARS CoV-2 RNA Rapid YVON Negative (NEGATIVE) 10/29/21 20:19 Reason For Visit: HYPONATREMIA, LEUKOCYTOSIS, COPD Discharge Date Discharge Date: 11/02/21 Discharge Diagnosis All Active Problems (Updated 10/29/21 @ 22:47 by EFREN RICE) COPD exacerbation (Acute) Bronchitis (Acute) Recent fracture of hip (Acute) Hyponatremia (Acute) Neutrophilic leukocytosis (Acute) Acute dehydration (Acute) COPD with chronic bronchitis (Acute) Plan of Treatment: Continue with present treatment and follow up plan. Pt is to keep follow up appointment as instructed and take medications as ordered. Discharge Medications Discharge Medications: clindamycin Allergy (Verified 09/18/20 15:36) ketorolac [From Toradol] Allergy (Verified 09/18/20 15:36) CONTINUE taking the following medications amlodipine 10 mg PO DAILY 10/29/21 [History] citalopram 20 mg PO DAILY 10/29/21 [History] clonidine HCl 0.3 mg PO BID 10/29/21 [History] hydrocodone-acetaminophen 1 tab PO Q6H PRN 10/29/21 [History] lisinopril-hydrochlorothiazide 1 tab PO DAILY 10/29/21 [History] lovastatin 40 mg PO DAILY 10/29/21 [History] omeprazole 20 mg PO DAILY 10/29/21 [History] New Prescriptions alprazolam 1 mg PO DAILY #0 tab 11/02/21 [Rx] levofloxacin 750 mg PO Q24H 4 Days #4 tab 11/02/21 [Rx] Follow up and Referral Follow Up: 1 Week Discharge Disposition Discharge Disposition: Home Discharge Condition: Stable Discharge Plan Discharge Plan Hospital Course: Pt is a 71 year old male past medical history of COPD, Hypertension, OA, admitted for Hyponatremia, COPD exacerbation, neutrophilic leukocytosis. Pt was treated with D5 NS@125ml/h. Allowed for correction of Na between 8 to 10 per 24 hours. Received antibiotics Levaquin. Scheduled bronchodilators, supplemental oxygen. Pt responded to treatments, Na back to baseline. Urine/Blood culture NGTD. project manager interior design discussed with patient's daughter, family members will be staying with patient at home. He was discharged in stable condition, Rx levaquin, and recommended a dose reduction of xanax. Instructed to follow up with pcp in 3-5 days. Patient Disposition: 50 DISCHARGED TO HOSPICE -HOME Condition: Stable Health Concerns: Post Hospitalization: new medications and changes needed to prevent readmission or further decline. Pt educated and given instructions on all concerns. Care Plan Goals: Problem: Fluid Volume Deficit Goal: Maintain/Improved Adequate hydration. Instructions: Follow provided instructions. Follow up with primary physician as directed. Contact primary care physician or report to the closest Emergency Room if condition worsens. Plan of Treatment: Continue with present treatment and follow up plan. Pt is to keep follow up appointment as instructed and take medications as ordered. Prescriptions: New levofloxacin 750 mg tablet 750 mg PO Q24H 4 Days Qty: 4 RF: 0 Continued lovastatin 40 mg tablet 40 mg PO DAILY RF: 0 clonidine HCl 0.3 mg tablet 0.3 mg PO BID RF: 0 hydrocodone-acetaminophen 10-325 mg tablet 1 tab PO Q6H PRNRF: 0 citalopram 20 mg tablet 20 mg PO DAILY RF: 0 amlodipine 10 mg tablet 10 mg PO DAILY RF: 0 omeprazole 20 mg capsule,delayed release(DR/EC) 20 mg PO DAILY RF: 0 lisinopril-hydrochlorothiazide 20-25 mg tablet 1 tab PO DAILY RF: 0 Changed alprazolam 1 mg tablet 1 mg PO DAILY Qty: 0 RF: 0 Follow ups/Referrals Follow ups/Referrals: [facility] [Other] (Call office when you are ready for services.) GABE SMITH [Primary Care Provider] - Instructions Instructions: Fall Prevention in the Home, Adult, [id number], Chronic Obstructive Pulmonary Disease Exacerbation, [id number], Hyponatremia, [id number], Hospice, Rehydration, Elderly, Dehydration, Elderly, [id number] Stand Alone Forms: Precautions for [place] [id number], [facility], Patient Portal, Social Distancing
== END 2021-11-02 13:45 | disposition hospice, home (50) | DRG 191 ==
LOC: ER 18:20 → ICU 10-30 01:18
PROVIDERS: ADMIT Family Medicine; ATTEND Family Medicine
DX: I10 Essential (primary) hypertension; R29.6 Repeated falls; E86.0 Dehydration; J44.1 Chronic obstructive pulmonary disease with (acute) exacerbation; E87.1 Hypo-osmolality and hyponatremia; Z20.822 Contact with and (suspected) exposure to COVID-19; D72.828 Other elevated white blood cell count; R41.82 Altered mental status, unspecified